=== PATIENT | male | born 1980 ===

== ENCOUNTER 2016-11-25 20:32 | Emergency (ER) | payer OTHER ==
[2016-11-25 20:49] VITALS: RESP 18; TEMP 98.2
[2016-11-25] MEDS ORDERED: CYCLOBENZAPRINE 10 MG TAB PO ONE (20:54)
[2016-11-25] MEDS ORDERED: KETOROLAC TROMETHAMINE 30 MG/ML SOL IM ONE (20:54)
[2016-11-25] MEDS ORDERED: CYCLOBENZAPRINE 10 MG TAB ONE (21:06)
[2016-11-25] MEDS ORDERED: KETOROLAC TROMETHAMINE 30 MG/ML SOL ONE (21:06)
[2016-11-25 22:03] VITALS: BP 116/70; PULSE 91; O2SAT 96
== END 2016-11-25 21:54 | disposition home or self-care (01) | DRG 552 ==
LOC: ED 20:32
DX: S33.5XXA Sprain of ligaments of lumbar spine, initial encounter (principal)
CPT/HCPCS: 99283; J1885

== ENCOUNTER 2017-08-27 11:33 | Day surgery (SDC) | payer OTHER ==
[2017-08-27 11:59] VITALS: RESP 16
[2017-08-27] MEDS ORDERED: BUPIVACAINE HCL 0.25% MPF 30 ML SOL INFIL ONE (12:11)
[2017-08-27] MEDS: TRIAMCINOLONE ACETONIDE 40 MG/ML SUS ONE ×2 (12:30→12:34)
[2017-08-27 12:44] VITALS: PULSE 64; TEMP 98.3; O2SAT 96
[2017-08-27 12:58] VITALS: BP 150/74
== END 2017-08-27 13:08 | disposition home or self-care (01) | DRG 554 ==
LOC: SURG 11:33
PROVIDERS: ATTEND Nurse Anesthetist, Certified Registered
DX: M12.9 Arthropathy, unspecified (principal)
CPT/HCPCS: J3300

== ENCOUNTER 2018-01-15 17:11 | Emergency (ER) | payer SELFPAY ==
[2018-01-15 17:11] VITALS: O2SAT 96
[2018-01-15 17:16] VITALS: BP 142/96; PULSE 82; RESP 16; TEMP 97.8
[2018-01-15] MEDS ORDERED: KETOROLAC TROMETHAMINE 30 MG/ML SOL ONE (17:45)
[2018-01-15] MEDS ORDERED: KETOROLAC TROMETHAMINE 30 MG/ML SOL IM ONE (17:49)
== END 2018-01-15 18:32 | disposition home or self-care (01) | DRG 556 ==
LOC: ED 17:11
DX: M25.562 Pain in left knee (principal); W10.8XXA Fall (on) (from) other stairs and steps, initial encounter
CPT/HCPCS: 73562; 96372; 99283; 99284; J1885; E0114; L1830

== ENCOUNTER 2018-04-21 12:59 | Day surgery (SDC) | payer MEDICAID ==
[2018-04-21] MEDS ORDERED: DIAZEPAM 5 MG TAB ONE (13:01)
[2018-04-21] MEDS ORDERED: BUPIVACAINE HCL 0.25% MPF 30 ML SOL INFIL ONE (13:31)
[2018-04-21] MEDS ORDERED: TRIAMCINOLONE ACETONIDE 40 MG/ML SUS ONE (13:31)
[2018-04-21 14:10] VITALS: BP 132/79; PULSE 68; RESP 20; TEMP 97; O2SAT 96
== END 2018-04-21 14:20 | disposition home or self-care (01) | DRG 552 ==
LOC: SURG 12:59
PROVIDERS: ATTEND Nurse Anesthetist, Certified Registered
DX: M51.17 Intervertebral disc disorders with radiculopathy, lumbosacral region (principal)
CPT/HCPCS: A9270-GY; J3300